=== PATIENT | male | born 1980 | race American Indian/Alaskan Native ===

== ENCOUNTER 2018-11-25 14:46 | Emergency (ER) | payer SELFPAY ==
[~2018-11-25] VITALS: Ht 172.7 cm; Wt 78.2 kg
[2018-11-25 14:50] VITALS: BP 122/77; TEMP 98.6
[2018-11-25] MEDS ORDERED: NORCO 325 MG-51 TAB PO (16:37)
[2018-11-25 16:59] VITALS: PULSE 78
== END 2018-11-25 17:00 | disposition home or self-care (01) ==
LOC: COL.ER 14:46
DX: S63.501A Unspecified sprain of right wrist, initial encounter (principal); X50.0XXA Overexertion from strenuous movement or load, initial encounter

== ENCOUNTER 2018-12-04 17:17 | Emergency (ER) | payer SELFPAY ==
[~2018-12-04] VITALS: Ht 172.7 cm; Wt 79.5 kg
[~2018-12-04 17:17] MED LIST: NORCO 325 MG-51 TAB PO
[2018-12-04 17:21] VITALS: BP 134/82; TEMP 99
[2018-12-04 18:02] VITALS: PULSE 88
== END 2018-12-04 18:04 | disposition home or self-care (01) ==
LOC: COL.ER 17:17
DX: S63.641A Sprain of metacarpophalangeal joint of right thumb, initial encounter (principal); X50.1XXA Overexertion from prolonged static or awkward postures, initial encounter; Y92.009 Unspecified place in unspecified non-institutional (private) residence as the place of occurrence of the external cause